=== PATIENT | male | born 1970 ===

== ENCOUNTER 2025-06-23 13:31 | Outpatient (CLI) | payer MEDICAID, SELFPAY ==
--- NOTE | 2025-06-23 09:45 | DI.RAD_ITS ---
Exam(s) XR CLAVICLE RT EXAM: XR CLAVICLE RT INDICATION: F/U FRACTURE. COMPARISON: No exams were available for comparison TECHNIQUE: 2D digital imaging was performed. Two views. FINDINGS: There is stable alignment the distal clavicle fracture. No visible bony bridging at this time. DATA REPOSITORY: RADIATION DOSE DELIVERED:
== END 2025-06-23 13:32 | disposition home or self-care (01) ==
LOC: DIORS 13:31
PROVIDERS: Visit Provider Physician Assistant
DX: S42.001A Fracture of unspecified part of right clavicle, initial encounter for closed fracture (principal)
CPT/HCPCS: 73000

== ENCOUNTER 2025-07-21 12:02 | Outpatient (CLI) | payer MEDICAID, SELFPAY ==
--- NOTE | 2025-07-21 10:29 | DI.RAD_ITS ---
Exam(s) XR CLAVICLE RT EXAM: XR CLAVICLE RT CLINICAL HISTORY: F/U FRACTURE TECHNIQUE: 2D digital imaging was performed of the right clavicle. Two images were obtained. AP and axial views were obtained. COMPARISON: CR XR CLAVICLE COMPLETE RIGHT from 05/28/2025 CR XR CLAVICLE RT from 06/23/2025 FINDINGS: BONES: There has been no change in alignment of the fracture of the midshaft of the right clavicle. Increased callus formation has developed about the fracture since the prior examination. There is no new fracture. No bony destructive lesion is seen. JOINTS: No dislocation present. The acromioclavicular and glenohumeral joints are well maintained. SOFT TISSUE: Normal IMPRESSION: Stable alignment of the right clavicular fracture. Increased callus formation since the prior examination. DATA REPOSITORY: RADIATION DOSE DELIVERED:
== END 2025-07-21 12:03 | disposition home or self-care (01) ==
LOC: DIORS 12:03
PROVIDERS: Visit Provider Student in an Organized Health Care Education/Training Program
DX: S42.001A Fracture of unspecified part of right clavicle, initial encounter for closed fracture (principal)
CPT/HCPCS: 73000

== ENCOUNTER 2025-09-22 14:43 | Outpatient (CLI) | payer MEDICAID, SELFPAY ==
--- NOTE | 2025-09-22 10:15 | DI.RAD_ITS ---
Exam(s) XR CLAVICLE RT EXAM: XR CLAVICLE RT CLINICAL HISTORY: F/U FRACTURE TECHNIQUE: 2D digital imaging was performed of the right clavicle. Two images were obtained. AP and axial views were obtained. COMPARISON: CR XR CLAVICLE RT from 07/21/2025 FINDINGS: BONES: There has been continued healing of the right mid clavicular fracture. The fracture line is less well visualized on the current examination. There is no new fracture. No bony destructive lesion is seen. JOINTS: No dislocation present. SOFT TISSUE: Normal IMPRESSION: There has been some interval healing of the right mid clavicular fracture. There has been no change in alignment. DATA REPOSITORY: RADIATION DOSE DELIVERED:
== END 2025-09-22 14:44 | disposition home or self-care (01) ==
LOC: DIORS 14:43
PROVIDERS: Visit Provider Student in an Organized Health Care Education/Training Program
DX: S42.021A Displaced fracture of shaft of right clavicle, initial encounter for closed fracture (principal)
CPT/HCPCS: 73000